=== PATIENT | male | born 1975 ===

== ENCOUNTER 2023-08-10 11:44 | Emergency (ER) | payer OTHER, SELFPAY ==
[2023-08-10 12:35] LABS: Influenza A by NAA Not Detected (NotDetected); Influenza B by NAA Not Detected (NotDetected); SARS-CoV-2 NAA Rapid Test Not Detected (NotDetected)
[2023-08-10] MEDS ORDERED: Dexamethasone 10 MG/ML VIAL ONE (13:07)
[2023-08-10] MEDS ORDERED: Ibuprofen 200 MG TAB ONE (13:07)
== END 2023-08-10 13:52 | disposition home or self-care (01) ==
LOC: CSHERS 11:44
DX: B34.9 Viral infection, unspecified (principal); I10 Essential (primary) hypertension
CPT/HCPCS: 71045; J1100